=== PATIENT | female | born 1945 | race Caucasian/White ===

== ENCOUNTER 2020-03-24 10:23 | Day surgery (SDC) | payer MEDICARE, SELFPAY ==
[2020-03-17 14:10] LABS: BASOPHILS # (AUTO) 0.1 X10'3 (0-0.2); BASOPHILS % (AUTO) 0.8 % (0-1); EOSINOPHILS # (AUTO) 0.2 X10'3 (0-0.9); EOSINOPHILS % (AUTO) 2.3 % (0-6); LYMPHOCYTES # (AUTO) 1.9 X10'3 (1.1-4.8); MEAN CORPUSCULAR HEMOGLOBIN 32.7 PG (27.0-31.0); MEAN CORPUSCULAR VOLUME 96.2 FL (78-98); MEAN PLATELET VOLUME 8.3 FL (7.4-10.4); MONOCYTES # (AUTO) 0.7 X10'3 (0-0.9); MONOCYTES % (AUTO) 9.5 % (2-12); NEUTROPHILS # (AUTO) 4.7 X10'3 (1.8-7.7); NEUTROPHILS % (AUTO) 62.4 % (42-75); PRE OP HEMATOCRIT 44.2 % (35.0-45.0); PRE OP HEMOGLOBIN 15.1 g/dL (12.0-16.0); PRE OP PLATELET COUNT 177 X10'3 (140-440); RED CELL DISTRIBUTION WIDTH 13.5 % (11.5-14.5)
[2020-03-17 14:26] LABS: ALBUMIN 3.7 G/DL (3.4-5.0); ALBUMIN/GLOBULIN RATIO 1.1 (1.1-1.5); BLOOD UREA NITROGEN 13 MG/DL (7-18); BUN/CREATININE RATIO 16.9 (6.6-38.0); CALCIUM 8.6 MG/DL (8.5-10.1); CHLORIDE 103 MMOL/L (99-107); CREATININE 0.77 MG/DL (0.40-0.90); PRE OP ALT 25 U/L (30-65); PRE OP ANION GAP 4 (8-16); PRE OP AST 16 U/L (10-37); PRE OP BILIRUB, TOTAL 0.9 MG/DL (0.0-1.0); PRE OP GLUCOSE 115 MG/DL (70-104); PRE OP POTASSIUM 4.2 MMOL/L (3.4-5.1); PRE OP SODIUM 137 MMOL/L (135-145); TOTAL CARBON DIOXIDE 30.4 MMOL/L (24-32); eGFR 73 ML/MIN
[2020-03-17 14:30] LABS: PRE OP INR 2.2 INR
[2020-03-17 14:37] LABS: ALKALINE PHOSPHATASE 67 IU/L (46-116)
[~2020-03-24] VITALS: Ht 167.6 cm; Wt 61.7 kg
[~2020-03-24 10:23] MED LIST: BUPIVAcaine/PF 2.5 mg/ml (0.25%) 30ml vial ONE; CARV12.549 PO; DIGO250T2 PO; DOCUMENT DATE & TIME OF BETA-BLOCKER PO ONE; FLUT1BLS10 INH; HYDR-3965 PO; LIDOcaine 1% 30ml preserv. free vial ONE; LOSA100T57 PO; MONT10TA26 PO; OMEP40CA13 PO; SIMV10TA98 PO; TIOT18CA3 INH; WARF4TAB69 PO; albuterol 2.5 MG/3 ML nebule NEB ONE; ceFAZolin 1000mg inj ONE; ceFAZolin 2gm in dextrose, iso 50 ML IV ONE; famotidine 20mg tablet PO ONE; ringers solution, lacted 1,000 ML IV SCH
[2020-03-24 10:35] VITALS: BP 146/87
[2020-03-24 11:26] LABS: PRE OP INR 1.1 INR; PRE OP PROTIME 11.1 SECONDS (9.0-12.0)
[2020-03-24] MEDS ORDERED: morphine 2 MG/ML inj. syringe IV PRN (11:45)
[2020-03-24] MEDS ORDERED: meperidine/PF 25mg/ml syringe IV PRN ×2 (11:45)
[2020-03-24] MEDS ORDERED: ringers solution, lacted 1,000 ML IV SCH (11:45)
[2020-03-24] MEDS ORDERED: ondansetron/PF 4mg/2ml inj IV PRN (11:45)
[2020-03-24] MEDS ORDERED: acetaminophen 1,000mg/100ml IV 100 ML IV PRN (11:45)
[2020-03-24] MEDS ORDERED: proCHLORperazine 10 MG/2 ml inj IV PRN (11:45)
[2020-03-24] MEDS ORDERED: fentaNYL/PF 50MCG/1 ML 2ML syringe ONE (11:54)
[2020-03-24] MEDS ORDERED: midazolam 2 mg/2 ml injection ONE (12:03)
[2020-03-24] MEDS ORDERED: propofol inj 20 ML IV ONE ×2 (12:03)
[2020-03-24 12:47] VITALS: BP 126/76
--- NOTE | 2020-03-24 12:48 | NUR ---
Received from OR via jojo, accompanied by Anesthesiologist Armin and report given by Anesthesiolgist. Pt VS stable, 20G right forearm, surgical site open to air, butterly stitches present. Sats 98% pt has own cannula on, glasses returned to patient and has dentures in her mouth.
[2020-03-24 13:00] VITALS: BP 133/71
[2020-03-24 13:10] VITALS: BP 137/78
[2020-03-24] MEDS ORDERED: CEPH-572 PO (13:14)
[2020-03-24 13:20] VITALS: BP 146/79
[2020-03-24 13:30] VITALS: BP 145/79
--- NOTE | 2020-03-24 13:57 | NUR ---
Pt discharged to vehicle without incident. Dressed in her own belongings, IV dc'd. She verbalized understanding of all DC instructions. Also Shiv son on phone received all instructions. A paper prescription of ABX orders were sent with patient in case of issues transmitting to pharmacy far away. Pt went home with her own home O2 cylinder and cannula.
== END 2020-03-24 13:57 | disposition home or self-care (01) ==
LOC: PAS 10:23
PROVIDERS: ATTEND Thoracic Surgery (Cardiothoracic Vascular Surgery)
DX: Z45.02 Encounter for adjustment and management of automatic implantable cardiac defibrillator (principal); I45.89 Other specified conduction disorders; I11.0 Hypertensive heart disease with heart failure; I50.9 Heart failure, unspecified; J44.9 Chronic obstructive pulmonary disease, unspecified; I25.10 Atherosclerotic heart disease of native coronary artery without angina pectoris; K21.9 Gastro-esophageal reflux disease without esophagitis; M10.9 Gout, unspecified; M19.90 Unspecified osteoarthritis, unspecified site; F17.210 Nicotine dependence, cigarettes, uncomplicated; Z20.828 Contact with and (suspected) exposure to other viral communicable diseases; Z79.899 Other long term (current) drug therapy; Z98.890 Other specified postprocedural states
CPT/HCPCS: 33264; 36415; 71046; 80053; 82948; 85025; 85610; 85730; 87635; 93005; 94640; C1882; C9803; J0690; J2001; J2250; J2704; J3010; J3490; A4215; A4615; A4618; A6258; A7000; J7120